=== PATIENT | male | born 1985 | race Two or more races ===

== ENCOUNTER 2018-04-14 19:22 | Emergency (ER) | payer OTHER ==
[~2018-04-14] VITALS: Ht 188 cm; Wt 158.8 kg
== END 2018-04-14 22:47 | disposition home or self-care (01) ==
LOC: ER 19:22
DX: S91.312A Laceration without foreign body, left foot, initial encounter (principal); S91.311A Laceration without foreign body, right foot, initial encounter; W25.XXXA Contact with sharp glass, initial encounter; Y93.89 Activity, other specified; Y92.89 Other specified places as the place of occurrence of the external cause; Y99.8 Other external cause status